=== PATIENT | male | born 1995 | race Caucasian/White ===

== ENCOUNTER 2018-12-26 00:48 | Emergency (ER) | payer OTHER ==
[~2018-12-26] VITALS: Ht 182.9 cm; Wt 75.9 kg
[2018-12-26 01:22] VITALS: BP 142/94; PULSE 65; TEMP 98.9
== END 2018-12-26 02:07 | disposition left against medical advice (07) ==
LOC: COL.ER 00:48
DX: R69 Illness, unspecified (principal)